=== PATIENT | male | born 2000 | race Caucasian/White ===

== ENCOUNTER 2019-01-01 23:09 | Emergency (ER) | payer SELFPAY ==
[~2019-01-01] VITALS: Ht 177.8 cm; Wt 72.7 kg
[2019-01-01] MEDS ORDERED: HALOPERIDOL 5 MG/ML VIAL (J1630) IM ONE (23:30)
[2019-01-01] MEDS ORDERED: diphenhydrAMINE INJ 50MG/ML VIAL (J1200) IM ONE (23:30)
[2019-01-02 00:01] LABS: HEMATOCRIT 44.9 % (42.0-52.0); HEMOGLOBIN 15.5 g/dl (13.5-17.5); MEAN CORPUSCULAR HEMOGLOBIN 30.7 pg (27.0-33.0); MEAN CORPUSCULAR HGB CONC 34.5 g/dl (32.0-36.5); MEAN CORPUSCULAR VOLUME 88.9 fl (80.0-96.0); PLATELET COUNT, AUTOMATED 251 10^3/uL (150-450); RED BLOOD COUNT 5.05 10^6/uL (4.30-6.10); WHITE BLOOD COUNT 10.8 10^3/uL (4.0-10.0)
[2019-01-02 00:28] LABS: AMPHETAMINES LEVEL URINE NEGATIVE (NEGATIVE); BARBITURATES URINE NEGATIVE (NEGATIVE); BENZODIAZEPINES URINE NEGATIVE (NEGATIVE); CANNABINOIDS URINE NEGATIVE (NEGATIVE); COCAINE METABOLITE URINE NEGATIVE (NEGATIVE); METHADONE URINE NEGATIVE (NEGATIVE); OPIATES URINE NEGATIVE (NEGATIVE); PHENCYCLIDINE URINE NEGATIVE (NEGATIVE)
[2019-01-02 00:42] LABS: ACETAMINOPHEN LEVEL < 2.0 UG/ML (10.0-30.0); ALBUMIN 4.2 GM/DL (3.2-5.2); ALT/SGPT 23 U/L (12-78); BILIRUBIN,DIRECT 0.1 MG/DL (0.0-0.2); BILIRUBIN,TOTAL 0.2 MG/DL (0.2-1.0); BLOOD UREA NITROGEN 17 MG/DL (7-18); CALCIUM LEVEL 9.5 MG/DL (8.5-10.1); CARBON DIOXIDE LEVEL 22 MEQ/L (21-32); CHLORIDE LEVEL 110 MEQ/L (98-107); CREATININE FOR GFR 1.34 MG/DL (0.70-1.30); ETHYL ALCOHOL (ETHANOL) 0.328 % (0.000-0.010); GLUCOSE, FASTING 121 MG/DL (70-100); POTASSIUM SERUM 3.3 MEQ/L (3.5-5.1); SALICYLATE LEVEL < 1.7 MG/DL (5.0-30.0); SODIUM LEVEL 145 MEQ/L (136-145); TOTAL PROTEIN 7.6 GM/DL (6.4-8.2)
[2019-01-02] MEDS ORDERED: LIDOCAINE W/EPINEPHRINE 1% 20ML VIAL SC ONE (01:45)
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
[2019-01-02 02:45] VITALS: BP 112/58
== END 2019-01-02 03:34 | disposition home or self-care (01) ==
LOC: EDBD 23:09 → M ED 23:09
DX: F10.129 Alcohol abuse with intoxication, unspecified (principal); Y90.1 Blood alcohol level of 20-39 mg/100 ml; S01.81XA Laceration without foreign body of other part of head, initial encounter; S02.2XXA Fracture of nasal bones, initial encounter for closed fracture; Y04.8XXA Assault by other bodily force, initial encounter; Y92.89 Other specified places as the place of occurrence of the external cause
CPT/HCPCS: 12013; 70450; 72125; 80048; 80076; 80307; 84443; 85027; 96372; 99285; G0480; J1200; J1630

== ENCOUNTER 2020-05-16 02:36 | Inpatient (IN) | payer OTHER, SELFPAY ==
[~2020-05-16] VITALS: Ht 175.3 cm; Wt 86.5 kg
--- NOTE | 2020-05-16 04:13 | REPVR ---
PROCEDURE INFORMATION: Exam: XR Complete Acute Abdomen Series Exam date and time: 05/16/2020 3:27 AM Age: 20 years old Clinical indication: Other: Abd pain, constipation TECHNIQUE: Imaging protocol: XR complete acute abdomen series, including 2 or more views of the abdomen and a single view chest. COMPARISON: No relevant prior studies available. FINDINGS: Lungs: Normal. No consolidation. Pleural space: Normal. No pneumothorax. Heart/Mediastinum: Normal. No cardiomegaly. Gastrointestinal tract: Normal. No bowel dilation. Intraperitoneal space: Normal. No free air. Bones/joints: Normal. No acute fracture. Soft tissues: Normal. IMPRESSION: No acute findings. Electronically signed by: Del Pryor On 05/16/2020 04:12:51 AM
[2020-05-16] MEDS ORDERED: NS 1,000 ML IV ONE (04:15)
[2020-05-16] MEDS ORDERED: KETOROLAC 30 MG/ML 1ML VIAL IV ONE (04:15)
[2020-05-16 04:41] LABS: BASO % 0.2 % (0.0-1.0); EOS % 0.4 % (0.0-3.0); HEMATOCRIT 42.4 % (42.0-52.0); HEMOGLOBIN 13.7 g/dl (13.5-17.5); LYMPH # 1.6 10^3/uL (1.5-5.0); LYMPH % 16.7 % (24.0-44.0); MEAN CORPUSCULAR HEMOGLOBIN 29.2 pg (27.0-33.0); MEAN CORPUSCULAR HGB CONC 32.3 g/dl (32.0-36.5); MEAN CORPUSCULAR VOLUME 90.4 fl (80.0-96.0); MONO # 1.1 10^3/uL (0.0-0.8); MONO % 11.4 % (0.0-5.0); NEUTROPHILS # 6.6 10^3/uL (1.5-8.5); NEUTROPHILS % 70.9 % (36.0-66.0); PLATELET COUNT, AUTOMATED 237 10^3/uL (150-450); RED BLOOD COUNT 4.69 10^6/uL (4.30-6.10); WHITE BLOOD COUNT 9.4 10^3/uL (4.0-10.0)
[2020-05-16 05:17] LABS: ALBUMIN 3.6 GM/DL (3.2-5.2); BILIRUBIN,DIRECT 0.1 MG/DL (0.0-0.2); BILIRUBIN,TOTAL 0.3 MG/DL (0.2-1.0); CALCIUM LEVEL 9.1 MG/DL (8.5-10.1); CREATININE FOR GFR 4.22 MG/DL (0.70-1.30); GLOMERULAR FILTRATION RATE 18.9 (>60); POTASSIUM SERUM 4.6 MEQ/L (3.5-5.1); TOTAL PROTEIN 7.1 GM/DL (6.4-8.2)
--- NOTE | 2020-05-16 05:48 | REPVR ---
PROCEDURE INFORMATION: Exam: CT Abdomen And Pelvis Without Contrast Exam date and time: 05/16/2020 5:19 AM Age: 20 years old Clinical indication: Abdominal pain; Flank; Right; Additional info: Generalized abd pain, ceci TECHNIQUE: Imaging protocol: Computed tomography of the abdomen and pelvis without contrast. Radiation optimization: All CT scans at this facility use at least one of these dose optimization techniques: automated exposure control; mA and/or kV adjustment per patient size (includes targeted exams where dose is matched to clinical indication); or iterative reconstruction. COMPARISON: CR Abdomen,Flat Upright,PA CHEST 05/16/2020 3:14 AM FINDINGS: Liver: Normal. No mass. Gallbladder and bile ducts: Normal. No calcified stones. No ductal dilation. Pancreas: Normal. No ductal dilation. Spleen: Normal. No splenomegaly. Adrenal glands: Normal. No mass. Kidneys and ureters: No urinary tract calculi. No renal masses. No hydronephrosis. Stomach and bowel: Unremarkable. No obstruction. No mucosal thickening. Appendix: No evidence of appendicitis. Intraperitoneal space: Unremarkable. No free air. No significant fluid collection. Vasculature: Unremarkable. No abdominal aortic aneurysm. Lymph nodes: Unremarkable. No enlarged lymph nodes. Urinary bladder: Unremarkable as visualized. Reproductive: Unremarkable as visualized. Bones/joints: Unremarkable. No acute fracture. Soft tissues: Unremarkable. IMPRESSION: No acute findings. Electronically signed by: Del Pryor On 05/16/2020 05:48:30 AM
[2020-05-16] MEDS ORDERED: MULT1TAB8 PO (06:10)
[2020-05-16] MEDS ORDERED: NS 2,610 ML in IV 1 EA IV ONE (06:15)
[2020-05-16 06:56] LABS: RSV AMPLIFICATION NEGATIVE (NEGATIVE)
[2020-05-16] MEDS ORDERED: ONDANSETRON 4MG/2ML VIAL IV PRN (07:30)
[2020-05-16] MEDS: PANTOPRAZOLE 40MG VIAL (C9113 PER 1) IV SCH ×2 (09:22→20:47)
[2020-05-16 09:51] VITALS: BP 151/96
[2020-05-16] MEDS: NS 1,000 ML IV SCH ×2 (13:41→20:47)
[2020-05-16 14:00] VITALS: BP 140/69
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
[2020-05-16] MEDS: SUCRALFATE SUSP 1GM/10ML UD PO SCH ×2 (14:25→18:05)
[2020-05-16] MEDS ORDERED: ACETAMINOPHEN *IV* 1,000 MG in IV 1 EA IV ONE (15:00)
[2020-05-16 18:21] LABS: CALCIUM LEVEL 8.2 MG/DL (8.5-10.1); CREATININE FOR GFR 2.88 MG/DL (0.70-1.30); GLOMERULAR FILTRATION RATE 29.3 (>60)
[2020-05-16 22:00] VITALS: BP 161/89
[2020-05-16] MEDS: ACETAMINOPHEN TAB 650MG DOSE (2X325MG) PO PRN (22:20)
[2020-05-17] MEDS: SUCRALFATE SUSP 1GM/10ML UD PO SCH ×4 (00:27→18:04)
[2020-05-17] MEDS: ACETAMINOPHEN TAB 650MG DOSE (2X325MG) PO PRN ×3 (03:07→21:37)
[2020-05-17] MEDS: NS 1,000 ML IV SCH (03:08)
[2020-05-17 05:38] LABS: BASO % 0.3 % (0.0-1.0); EOS # 0.1 10^3/uL (0.0-0.5); EOS % 1.4 % (0.0-3.0); HEMATOCRIT 36.6 % (42.0-52.0); LYMPH % 30.9 % (24.0-44.0); MEAN CORPUSCULAR HEMOGLOBIN 29.3 pg (27.0-33.0); MEAN CORPUSCULAR HGB CONC 31.4 g/dl (32.0-36.5); MEAN CORPUSCULAR VOLUME 93.1 fl (80.0-96.0); MONO # 0.6 10^3/uL (0.0-0.8); MONO % 9.5 % (0.0-5.0); NEUTROPHILS # 3.8 10^3/uL (1.5-8.5); NEUTROPHILS % 57.7 % (36.0-66.0); PLATELET COUNT, AUTOMATED 186 10^3/uL (150-450); RED BLOOD COUNT 3.93 10^6/uL (4.30-6.10); WHITE BLOOD COUNT 6.5 10^3/uL (4.0-10.0)
[2020-05-17 05:48] LABS: HEMOGLOBIN 11.5 g/dl (13.5-17.5)
[2020-05-17 05:58] LABS: CALCIUM LEVEL 8.2 MG/DL (8.5-10.1); CREATININE FOR GFR 2.35 MG/DL (0.70-1.30); GLOMERULAR FILTRATION RATE 37.1 (>60); POTASSIUM SERUM 4.9 MEQ/L (3.5-5.1)
[2020-05-17 06:00] VITALS: BP 141/79
[2020-05-17] MEDS: PANTOPRAZOLE 40MG VIAL (C9113 PER 1) IV SCH ×2 (07:39→21:36)
[2020-05-17] MEDS ORDERED: NS 0.45% 1,000 ML IV SCH (08:00)
[2020-05-17] MEDS ORDERED: INFLUENZA QUADRIVALENT PF VACCINE 0.5ML SYRINGE IM ONE (09:00)
--- NOTE | 2020-05-17 10:30 | IPNPDOC ---
Subjective Date Seen The patient was seen on 05/17/20. Subjective Chief Complaint/HPI complaining of abdominal cramps after food. He also complained of right buttock pain but no radiation down the leg. Objective Physical Examination General Exam: Positive: Alert, Cooperative, No Acute Distress Eye Exam: Positive: PERRLA, Conjunctiva & lids normal, EOMI; Negative: Sclera icteric ENT Exam: Positive: Atraumatic, Mucous membr. 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 He did not report any diarrhea. He started with back pain in the right buttocks about a week ago which sometimes shoots down the legs so he started taking ibuprofens. He then started having crampy abdominal pain 3 days ago associated with vomiting. The pain and vomiting has been so severe that he has not been able to take much Po. The liquids he was trying to drink was just coming up. His abdominal pain is in the upper abdomen and the periumbilical area, sharp crampy in nature worsening with the intake of food and he rates it at 8/10. CT abdomen and pelvis done in the ED was negative for any acute findings. Labs showed a BUN of 25 and creatinine of 4.2 He was admitted for SUKHJINDER. SUKHJINDER possibly due to combination os NSAIDS and vomiting. improving continue IVF If does not improve by tomorrow will consult nephro Abdominal pain probably due to acute gastritis due to NSAIDS will give PPI and zofran , sucralfate and give tylenol. No NSAIDS. Tylenol prn fpr pain. Tolerated regular food. Elevated BP noted in the hospital this could be due to his abdominal pain and back pain May need antihypertensives if continues to be high. Plan/VTE VTE Prophylaxis Ordered?: Yes VS, I&O, 24H, Fishbone Vital Signs/I&O Vital Signs Date Time Temp Pulse Resp B/P (MAP) Pulse Ox O2 Delivery O2 Flow Rate FiO2 05/17/20 06:00 97.7 57 16 141/79 (99) 98 Room Air I&O- Last 24 Hours up to 6 AM 05/17/20 06:00 Intake Total 6230 ml Balance 6230 ml Laboratory Data 24H LABS Laboratory Tests 2 05/16/20 17:34: Anion Gap 5L, Glomerular Filtration Rate 29.3L, Calcium Level 8.2L, Total Creatine Kinase 73 05/17/20 05:18: Anion Gap 5L, Glomerular Filtration Rate 37.1L, Calcium Level 8.2L, Immature Granulocyte % (Auto) 0.2, Neutrophils (%) (Auto) 57.7, Lymphocytes (%) (Auto) 30.9, Monocytes (%) (Auto) 9.5H, Eosinophils (%) (Auto) 1.4, Basophils (%) (Auto) 0.3, Neutrophils # (Auto) 3.8, Lymphocytes # (Auto) 2.0, Monocytes # (Auto) 0.6, Eosinophils # (Auto) 0.1, Basophils # (Auto) 0.0, Nucleated Red Blood Cells % (auto) 0.0 CBC/BMP Laboratory Tests 05/16/20 17:34 05/17/20 05:18 DANYELLE BREWER MD May 17, 2020 10:30
[2020-05-17 14:00] VITALS: BP 161/97
[2020-05-17 14:05] VITALS: BP 182/122
[2020-05-17 15:29] VITALS: BP 160/110
[2020-05-17] MEDS ORDERED: amLODIPine 10 MG TAB PO ONE (15:45)
[2020-05-17 22:00] VITALS: BP 160/82
[2020-05-18] MEDS: SUCRALFATE SUSP 1GM/10ML UD PO SCH ×5 (00:19→23:27)
[2020-05-18] MEDS: ACETAMINOPHEN TAB 650MG DOSE (2X325MG) PO PRN ×3 (05:21→21:24)
[2020-05-18 06:00] VITALS: BP 168/118
[2020-05-18 06:59] LABS: BASO % 0.3 % (0.0-1.0); EOS # 0.1 10^3/uL (0.0-0.5); EOS % 0.9 % (0.0-3.0); HEMATOCRIT 37.8 % (42.0-52.0); HEMOGLOBIN 12.1 g/dl (13.5-17.5); LYMPH # 1.7 10^3/uL (1.5-5.0); LYMPH % 16.3 % (24.0-44.0); MEAN CORPUSCULAR HEMOGLOBIN 29.5 pg (27.0-33.0); MEAN CORPUSCULAR VOLUME 92.2 fl (80.0-96.0); MONO % 10.1 % (0.0-5.0); NEUTROPHILS # 7.4 10^3/uL (1.5-8.5); PLATELET COUNT, AUTOMATED 208 10^3/uL (150-450); WHITE BLOOD COUNT 10.2 10^3/uL (4.0-10.0)
[2020-05-18 07:25] LABS: CALCIUM LEVEL 8.4 MG/DL (8.5-10.1); CREATININE FOR GFR 2.29 MG/DL (0.70-1.30); GLOMERULAR FILTRATION RATE 38.2 (>60); POTASSIUM SERUM 4.4 MEQ/L (3.5-5.1)
[2020-05-18] MEDS: PANTOPRAZOLE 40MG VIAL (C9113 PER 1) IV SCH ×2 (08:43→21:24)
[2020-05-18] MEDS: **hydrALAZINE HCL** 25 MG TAB PO SCH ×4 (08:44→23:27)
[2020-05-18] MEDS: amLODIPine 10 MG TAB PO SCH (08:44)
[2020-05-18 11:11] LABS: APPEARANCE, URINE CLEAR (CLEAR); BACTERIA, URINE AUTO NEGATIVE (NEGATIVE); BILIRUBIN, URINE AUTO NEGATIVE (NEGATIVE); BLOOD, URINE BLOOD NEGATIVE (NEGATIVE); COLOR, URINE COLORLESS (YELLOW); GLUCOSE, URINE (UA) AUTO NEGATIVE (NEGATIVE); KETONE, URINE AUTO NEGATIVE (NEGATIVE); LEUKOCYTE ESTERASE, URINE AUTO NEGATIVE (NEGATIVE); NITRITE, URINE AUTO NEGATIVE (NEGATIVE); PROTEIN, URINE AUTO NEGATIVE (NEGATIVE); RBC, URINE AUTO 0 /HPF (0-3); SPECIFIC GRAVITY URINE AUTO 1.002 (1.002-1.035); SQUAMOUS EPITHELIAL CELL UR AU 0 /HPF (0-6); UROBILINOGEN, URINE AUTO 0.2 mg/dL (0.0-2.0); WBC, URINE AUTO 0 /HPF (0-3)
[2020-05-18] MEDS: CARVedilol 6.25 MG TAB PO SCH ×2 (12:28→21:24)
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
--- NOTE | 2020-05-18 13:26 | CR ---
CONSULTATION DATE: 05/18/2020 REQUESTING PHYSICIAN: Bri Alvarado M.D. CONSULTING PHYSICIAN: Joyce Mcdaniel M.D. REASON FOR CONSULTATION: Management of acute renal failure and hypertension. CHIEF COMPLAINT: The patient presented to the Emergency Room over the weekend with persistent abdominal pain and back pain and vomiting. 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 He presented to the Emergency Room on May 16, 2020 with a three day history of nausea, vomiting, abdominal pain and back pain. The patient was also taking a lot of Ibuprofen at the time when he had pain, an and vomiting. He was unable to keep any liquids down. Further evaluation in the Emergency Room showed that the patient had a creatinine of 4.2 on arrival. He was admitted under the Hospitalist service. He was started on IV fluid hydration. The patient was getting IV fluids. His renal function is slightly improving, however the patient was very hypertensive today morning so Nephrology Service was called for further help in the management of the patient. I saw and evaluated the patient today morning at the bedside. The patient's IV fluids have been stopped. He still reports some mild abdominal pain. Further history was obtained from the patient. PAST MEDICAL HISTORY: No significant past medical history. He denies any history of hypertension in the past. PAST SURGICAL HISTORY: History of danish in the head, otherwise no significant surgical history. ALLERGIES: No known drug allergies. FAMILY HISTORY: There is a family history of high blood pressure at an earlier age and history of endstage renal disease in his grandfather. SOCIAL HISTORY: The patient is an active duty solider. He admits to using cocaine and because of that he reports he honorably being discharged. He reports that the last cocaine use was about a month ago and whenever he uses cocaine he snorts it and he uses about a gram over a few days. REVIEW OF SYSTEMS: Constitutional: He denies any fevers or chills. Eyes: He denies any blurry vision or double visions. ENT: He denies any dysphagia or odynophagia. Cardiovascular: He denies any chest pain or palpitations. Respiratory: He denies any cough or phlegm. GI: He reports abdominal pain, nausea and vomiting on arrival. Genitourinary: He denies any dysuria or hematuria. Musculoskeletal: He denies any muscle aches or pains at this time. Skin: He denies any rashes or ulcer. Psych: He denies any depression or anxiety. RENEWABLE ENERGY PROJECT MANAGER: He denies any source of strokes or seizures. Hematologic/Oncologic: He denies any easy bleeding or bruising. All other review of systems are negative. PHYSICAL EXAMINATION: GENERAL: The patient is awake, alert and oriented x3, sitting up in the bed. VITAL SIGNS: Temperature is 98.7 degrees Fahrenheit, blood pressure is 180/120, pulse is 82, respiratory rate is 18, saturating 96% on room air. INTAKE AND OUTPUT: Urine output recorded as 550 ml. Weight is 94.2 kg. HEAD AND NECK: Extraocular muscles intact. Pupils are equally round and reactive to light. Mucous membranes are moist. NECK: Supple. There is no JVD. CARDIOVASCULAR: S1 and S2. Regular rate. No edema of the bilateral lower extremities. RESPIRATORY: Chest is clear to auscultation bilaterally. Bilateral equal air entry. No rales or rhonchi. ABDOMEN: Soft, positive bowel sounds. A mild amount of tenderness on deep palpation in the right lower quadrant and left lower quadrant. GENITOURINARY: Bladder is not palpable. MUSCULOSKELETAL: No clubbing or cyanosis. Pulses are 2+. RENEWABLE ENERGY PROJECT MANAGER: No focal deficit. Power is 5/5 in all extremities. LABORATORY DATA: CBC showed a WBC of 10.2, hemoglobin 12.1, platelets are 208,000. Urinalysis done today showed no proteinuria or hematuria. BMP on arrival showed a sodium of 139, potassium 4.6, chloride 104, bicarbonate 29, BUN 25, creatinine is 4.2. Calcium is 9.1. CPK was 73. Lipase was 43. BMP today after three days of admission on IV fluids: Sodium 146, potassium 4.4, chloride 111, bicarbonate 27, BUN 14, creatinine is 2.2. Calcium is 8.4. IMAGING: CT scan of the abdomen and pelvis on May 16, 2020 showed no acute findings. CURRENT INPATIENT MEDICATIONS: The patient's medications are all reviewed by myself. He was getting half normal saline at 125 ml an hour which has been stopped now. He is on Tylenol p.r.n. He was started on amlodipine 10 mg p.o. daily yesterday and he was also started on hydralazine 25 mg p.o. q. 6 hourly by the Medical Team. I had started him on Coreg 6.25 mg p.o. twice a day. He is on Zofran p.r.n., Protonix 40 mg IV q. 12 hours and Carafate 1 gram p.o. q. 6 hourly. ASSESSMENT AND PLAN: 1. Acute renal failure. It is most likely secondary to a combination of use of high dose Ibuprofen at home, he was dehydrated. I am not sure when exactly his last cocaine use was. He was also taking anabolic steroids and protein supplements. All of this together has caused renal failure, however he has adequately responded to the IV fluids. Right now because of accelerated hypertension his fluids have been stopped. Continue to monitor for renal recovery. There is no proteinuria or hematuria on the labs and imaging showed no hydronephrosis or stone. 2. Hypertension, most likely secondary to use of excessive IV fluid hydration. Patient has already been started on amlodipine and hydralazine. I have added Carvedilol, avoid use of MILADYS and ARB in this patient with acute renal failure. I have also added renin aldosterone serum levels, plasma metanephrine and non-metanephrine and VMA. 3. Acute gastroenteritis with abdominal pain. The patient is currently on Protonix, Carafate and p.r.n. Zofran. Clinically, he is getting better. 4. History of cocaine abuse. Urine toxicology has been ordered. Okay to continue the beta blockers at this time. Thank you for involving me in the care of this patient. I shall be happy to follow the patient along with you tomorrow morning.
[2020-05-18 22:00] VITALS: BP 153/101
[2020-05-19 06:00] VITALS: BP 158/99
[2020-05-19] MEDS: SUCRALFATE SUSP 1GM/10ML UD PO SCH ×2 (06:10→12:03)
[2020-05-19] MEDS: **hydrALAZINE HCL** 25 MG TAB PO SCH ×2 (06:10→12:05)
[2020-05-19] MEDS: ACETAMINOPHEN TAB 650MG DOSE (2X325MG) PO PRN (06:11)
[2020-05-19 08:00] LABS: BASO % 0.5 % (0.0-1.0); EOS # 0.1 10^3/uL (0.0-0.5); EOS % 1.5 % (0.0-3.0); HEMATOCRIT 41.1 % (42.0-52.0); HEMOGLOBIN 13.3 g/dl (13.5-17.5); LYMPH # 1.5 10^3/uL (1.5-5.0); LYMPH % 16.3 % (24.0-44.0); MEAN CORPUSCULAR HEMOGLOBIN 29.2 pg (27.0-33.0); MEAN CORPUSCULAR HGB CONC 32.4 g/dl (32.0-36.5); MEAN CORPUSCULAR VOLUME 90.3 fl (80.0-96.0); MONO # 0.9 10^3/uL (0.0-0.8); MONO % 9.8 % (0.0-5.0); NEUTROPHILS # 6.4 10^3/uL (1.5-8.5); NEUTROPHILS % 71.6 % (36.0-66.0); PLATELET COUNT, AUTOMATED 254 10^3/uL (150-450); RED BLOOD COUNT 4.55 10^6/uL (4.30-6.10); WHITE BLOOD COUNT 8.9 10^3/uL (4.0-10.0)
[2020-05-19 08:18] LABS: CALCIUM LEVEL 8.5 MG/DL (8.5-10.1); CREATININE FOR GFR 2.34 MG/DL (0.70-1.30); GLOMERULAR FILTRATION RATE 37.3 (>60)
[2020-05-19] MEDS: PANTOPRAZOLE 40MG VIAL (C9113 PER 1) IV SCH (09:14)
[2020-05-19] MEDS: amLODIPine 10 MG TAB PO SCH (09:17)
[2020-05-19] MEDS: CARVedilol 6.25 MG TAB PO SCH (09:17)
[2020-05-19] MEDS ORDERED: CARV6.25 PO (11:05)
[2020-05-19] MEDS ORDERED: HYDR25TA PO (11:05)
[2020-05-19] MEDS ORDERED: AMLO1TAB25 PO (11:05)
[2020-05-19 12:05] VITALS: BP 140/90
[2020-05-19] MEDS ORDERED: OMEP40CA97 PO (17:56)
--- NOTE | 2020-05-19 17:58 | DS.PDOC ---
Discharge Summary General Date of Admission May 16, 2020 at 07:29 Date of Discharge 05/19/20 Discharge Summary PROCEDURES PERFORMED DURING STAY: [None]. DISCHARGE DIAGNOSES: SUKHJINDER vs SUKHJINDER on CKD Hypertensive urgency Acute gastritis. COMPLICATIONS/CHIEF COMPLAINT: SUKHJINDER. 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 He did not report any diarrhea. He started with back pain in the right buttocks about a week ago which sometimes shoots down the legs so he started taking ibuprofens. He then started having crampy abdominal pain 3 days ago associated with vomiting. The pain and vomiting has been so severe that he has not been able to take much Po. The liquids he was trying to drink was just coming up. His abdominal pain is in the upper abdomen and the periumbilical area, sharp crampy in nature worsening with the intake of food and he rates it at 8/10. CT abdomen and pelvis done in the ED was negative for any acute findings. Labs showed a BUN of 25 and creatinine of 4.2 He was admitted for SUKHJINDER. SUKHJINDER possibly due to combination os NSAIDS and dehydration from heavy alcohol intake followed by vomiting +/- use of creatinine and anabolic steroids with dehydration +/- cocaine use follow up with nephro in 1 week adviced rest for 1 week. No PT. Abdominal pain probably due to acute gastritis due to NSAIDS/ alcohol binge now improved . Omeprazole Hypertension with hypertensive urgency in hospital new diagnosis started on amlodipine, coreg and hydralazine DISCHARGE MEDICATIONS: Please see below. ALLERGIES: Please see below. PHYSICAL EXAMINATION ON DISCHARGE: VITAL SIGNS: Please see below. General Exam: Positive: Alert, Cooperative, No Acute Distress Eye Exam: Positive: PERRLA, Conjunctiva & lids normal, EOMI; Negative: Sclera icteric ENT Exam: Positive: Atraumatic, Mucous membr. moist/pink, Pharynx Normal Neck Exam: Positive: Supple; Negative: JVD, thyromegaly Chest Exam: Positive: Clear to auscultation, Normal air movement Heart Exam: Positive: Rate Normal, Regular Rhythm, Normal S1, Normal S2; Negative: Murmurs, Rubs Abdomen Exam: Positive: Normal bowel sounds, Soft, Tenderness, Other (No guarding or rigidity); Negative: Hepatosplenomegaly Extremity Exam: Positive: Normal pulses; Negative: Clubbing, Cyanosis, Edema Skin Exam: Positive: Nl turgor and temperature; Negative: Breakdown, Lesion LABORATORY DATA: Please see below. IMAGING: CT abdomen and pelvis: Liver: Normal. No mass. Gallbladder and bile ducts: Normal. No calcified stones. No ductal dilation. Pancreas: Normal. No ductal dilation. Spleen: Normal. No splenomegaly. Adrenal glands: Normal. No mass. Kidneys and ureters: No urinary tract calculi. No renal masses. No hydronephrosis. Stomach and bowel: Unremarkable. No obstruction. No mucosal thickening. Appendix: No evidence of appendicitis. Intraperitoneal space: Unremarkable. No free air. No significant fluid collection. Vasculature: Unremarkable. No abdominal aortic aneurysm. Lymph nodes: Unremarkable. No enlarged lymph nodes. Urinary bladder: Unremarkable as visualized. Reproductive: Unremarkable as visualized. Bones/joints: Unremarkable. No acute fracture. Soft tissues: Unremarkable. IMPRESSION: No acute findings. ACTIVITY: [As tolerated]. DIET: 2 gm sodium DISPOSITION: 01 Home, Self-Care. DISCHARGE INSTRUCTIONS: Dr Mcdaniel in 1 week PMD SARA ITEMS TO FOLLOWUP ON ON OUTPATIENT: renal functions. DISCHARGE CONDITION: [Stable]. TIME SPENT ON DISCHARGE: 35 minutes. Vital Signs/I&Os Vital Signs Date Time Temp Pulse Resp B/P (MAP) Pulse Ox O2 Delivery O2 Flow Rate FiO2 05/19/20 12:05 140/90 05/19/20 09:17 78 05/19/20 06:00 99.3 18 96 Room Air I&O- Last 24 Hours up to 6 AM 05/19/20 06:00 Intake Total 4920 ml Output Total 550 ml Balance 4370 ml Laboratory Data Labs 24H Laboratory Tests 2 05/19/20 07:25: Immature Granulocyte % (Auto) 0.3, Neutrophils (%) (Auto) 71.6H, Lymphocytes (%) (Auto) 16.3L, Monocytes (%) (Auto) 9.8H, Eosinophils (%) (Auto) 1.5, Basophils (%) (Auto) 0.5, Neutrophils # (Auto) 6.4, Lymphocytes # (Auto) 1.5, Monocytes # (Auto) 0.9H, Eosinophils # (Auto) 0.1, Basophils # (Auto) 0.0, Nucleated Red Blood Cells % (auto) 0.0, Anion Gap 7L, Glomerular Filtration Rate 37.3L, Calciu m Level 8.5 CBC/BMP Laboratory Tests 05/19/20 07:25 Discharge Medications Scheduled Amlodipine Besylate (Amlodipine Besylate) 10 Mg Tablet, 10 MG PO DAILY Carvedilol (Carvedilol) 6.25 Mg Tablet, 6.25 MG PO BID Hydralazine HCl (Hydralazine HCl) 25 Mg Tablet, 25 MG PO TID Multivitamin (Multi-Vitamin Daily) 1 Each Tablet, 1 TAB PO DAILY, (Reported) Allergies Coded Allergies: No Known Allergies (Unverified , 05/16/20) DANYELLE BREWER MD May 19, 2020 17:58
--- NOTE | 2020-05-19 21:42 | IPN ---
PROGRESS NOTE DATE: 05/19/2020 SUBJECTIVE: Patient was seen and examined at the bedside today morning. He is afebrile, hemodynamically stable. His blood pressures are better controlled. Renal function is stable with creatinine fluctuating at 2.3. He denies any active complaints. OBJECTIVE: Vital signs: Temperature is 99.3 degrees Fahrenheit, blood pressure 150/88, pulse is 77, respiratory rate of 18, saturating 96% on room air. Intake and output: Urine output is not recorded. Weight in the bed scale is 86.5 kg which is not reliable because there is 8 kg difference since yesterday. PHYSICAL EXAMINATION: GENERAL: Patient is awake, alert, oriented times three, sitting up in the bed, no apparent distress. HEAD AND NECK EXAM: Extraocular muscles intact. Pupils equally round and reactive to light. Mucous membranes are moist. Neck is supple. There is no jugular venous distension (JVD). CARDIOVASCULAR: S1, S2, regular rate. No edema of the bilateral lower extremities. RESPIRATORY: Chest is clear to auscultation bilaterally. Bilateral equal air entry. No rales or rhonchi. ABDOMEN: Soft, positive bowel sounds, nontender, no organomegaly. MUSCULOSKELETAL: No clubbing or cyanosis. Pulses are 2+. CENTRAL NERVOUS SYSTEM (EXPLOSIVE ORDNANCE DISPOSAL SPECIALIST): No focal deficits. Power is 5/5 in all extremities. LABORATORY REVIEW: CBC showed WBC 8.9, hemoglobin 13.3, platelets are 254. Urine VMA and metanephrine was canceled. BMP today showed sodium 144, potassium 4, chloride 109, bicarbonate 28, BUN 15, creatinine is 2.3, it was 2.29 yesterday. CURRENT INPATIENT MEDICATIONS: Patient's medications were all reviewed by myself. He is currently on amlodipine 10 mg daily, Coreg 6.25 mg by mouth twice a day, hydralazine 25 mg by mouth every 6 hours. ASSESSMENT AND PLAN: 1. Hypertension. Blood pressures are better controlled with current regimen of amlodipine, Coreg, and hydralazine. Hydralazine can be changed to 25 mg by mouth every 8 hours when he is discharged. Rest of the antihypertensive regimen will be adjusted as outpatient. 2. Acute renal failure. It was secondary to dehydration and use of supplements and ibuprofen at home. Creatinine has plateaued at around 2.3. Looking at his previous records, his previous creatinine in 2019 was 1.3. Patient most likely has chronic kidney disease (CKD) at baseline. He will need to followup with nephrology as outpatient. Latest urinalysis done yesterday showed proteinuria or hematuria. 3. Disposition. It is okay to discharge the patient from a nephrology standpoint. He will need to followup with nephrology within 2 weeks after discharge from the hospital.
== END 2020-05-19 14:30 | disposition home or self-care (01) | DRG 392 ==
LOC: M ED 02:36 → M ED INP 07:29 → M MS5PR 09:44
PROVIDERS: ADMIT Internal Medicine Nephrology; ATTEND Internal Medicine Nephrology
DX: K29.00 Acute gastritis without bleeding (principal); N17.9 Acute kidney failure, unspecified; N18.9 Chronic kidney disease, unspecified; I16.0 Hypertensive urgency